=== PATIENT | female | born 1980 | race Native Hawaiian/Other Pacific Islander ===

== ENCOUNTER 2018-08-06 10:29 | Outpatient (CLI) | payer OTHER ==
[2018-08-06 11:41] LABS: PLATELET COUNT 291 K/uL (152-353)
[2018-08-06 11:59] LABS: POTASSIUM 4.5 mmol/L (3.6-5.2)
== END 2018-08-06 19:17 | disposition home or self-care (01) ==
LOC: LABW 10:29
PROVIDERS: Physician Assistant
DX: E53.8 Deficiency of other specified B group vitamins (principal); E61.1 Iron deficiency; E87.8 Other disorders of electrolyte and fluid balance, not elsewhere classified; E20.0 Idiopathic hypoparathyroidism; E51.9 Thiamine deficiency, unspecified; E61.0 Copper deficiency
CPT/HCPCS: 36415; 80053; 82306; 82607; 82728; 82747; 83970; 84425; 85027

== ENCOUNTER 2022-02-17 16:11 | Emergency (ER) | payer OTHER ==
[~2022-02-17] VITALS: Ht 160 cm; Wt 115.2 kg
[2022-02-17 16:45] LABS: PLATELET COUNT 257 K/uL (152-353)
[2022-02-17 17:59] VITALS: BP 138/84; TEMP 98
== END 2022-02-17 17:59 | disposition home or self-care (01) ==
LOC: ED 16:11
PROVIDERS: Emergency Medicine
DX: E66.8 Other obesity (principal); E86.0 Dehydration; J06.9 Acute upper respiratory infection, unspecified
CPT/HCPCS: 80048; 81002; 81015; 85027; 96360; 99284